=== PATIENT | male | born 2000 | race Hispanic/Latino ===

== ENCOUNTER 2025-01-21 14:31 | Emergency (ER) | payer BC ==
[~2025-01-21] VITALS: Ht 182.9 cm; Wt 67.1 kg
[2025-01-21 15:50] VITALS: PULSE 77; RESP 16; TEMP 98.2; O2SAT 100
== END 2025-01-21 15:55 | disposition home or self-care (01) ==
LOC: ER 15:13
DX: H61.22 Impacted cerumen, left ear (principal)
CPT/HCPCS: 99283